=== PATIENT | female | born 1940 | race Caucasian/White ===

== ENCOUNTER → 2023-11-13 08:07 | Outpatient (REF) | payer OTHER, SELFPAY | LOC: HWRAD 08:07 | PROVIDERS: ATTENDING PHYSICIAN Physician Assistant Surgical; FAMILY PHYSICIAN Internal Medicine | DX: S52.571A Other intraarticular fracture of lower end of right radius, initial encounter for closed fracture (principal); M79.641 Pain in right hand | CPT/HCPCS: 73200 ==